=== PATIENT | female | born 1980 | race Caucasian/White ===

== ENCOUNTER 2016-08-27 05:03 | Emergency (ER) | payer OTHER ==
[2016-08-27 05:20] VITALS: BP 118/71; PULSE 83; RESP 16; TEMP 98; O2SAT 99
--- NOTE | 2016-08-27 05:29 | ED PDOC ---
HPI: Allergic Reaction Time Seen by Provider: 08/27/16 05:11 Chief Complaint (Nursing): Allergic Reaction Chief Complaint (Provider): Facial Rash History Per: Patient History/Exam Limitations: no limitations Current Symptoms Are (Timing): Still Present Associated Symptoms: Skin Rash Additional Complaint(s): Rosa Chang, a 36 year old female, presents to the ED for a facial rash. The patient states that on Saturday she got botox and started to use a new facial spray. She states that she developed an itchy facial rash and feels as though it 's spreading and so she decided to come into the ED for evaluation. Denies fever , shortness of breath and vomiting. Past Medical History Reviewed: Historical Data, Nursing Documentation, Vital Signs Vital Signs: Last Vital Signs Temp 98 F 08/27/16 05:16 Pulse 83 08/27/16 05:16 Resp 16 08/27/16 05:16 BP 118/71 08/27/16 05:16 Pulse Ox 99 08/27/16 05:16 - Medical History PMH: Hyperthyroidism - Family History Family History: States: Unknown Family Hx - Social History Current smoker - smoking cessation education provided: No Alcohol: < 2 Drinks/Day Drugs: Denies - Allergies Allergies/Adverse Reactions: Allergies Allergy/AdvReac Type Severity Reaction Status Date / Time poison aida extract Allergy RASH Verified 08/27/16 05:16 Review of Systems Constitutional: Negative for: Fever Respiratory: Negative for: Shortness of Breath Gastrointestinal: Negative for: Vomiting Skin: Positive for: Rash (Urticarial rash to the face) Physical Exam - Reviewed Nursing Documentation Reviewed: Yes Vital Signs Reviewed: Yes - Physical Exam Appears: Positive for: Non-toxic (No facial or lip swelling.), No Acute Distress Skin: Positive for: Warm, Dry, Rash (Urticarial rash to the face.) ENT: Positive for: Normal ENT Inspection Cardiovascular/Chest: Positive for: Regular Rate, Rhythm, Chest Non Tender. Negative for: Tachycardia Respiratory: Positive for: Normal Breath Sounds. Negative for: Wheezing, Respiratory Distress - ECG O2 Sat by Pulse Oximetry: 99 (RA) Pulse Ox Interpretation: Normal - Progress ED Course And Treament: 0511 Initial Plan: 36 year old female presenting with an urticaria rash to the face Initial Plan: * Benadryl 25mg PO Scribe Attestation Documented by Mary Ellen Blevins acting as a scribe for Lise Dawkins MD. Provider Attestation All medical record entries made by the Scribe were at my direction and personally dictated by me. I have reviewed the chart and agree that the record accurately reflects my personal performance of the history, physical exam, medical decision making, and the department course for this patient. I have also personally directed, reviewed, and agree with the discharge instructions and disposition. Disposition - Clinical Impression Clinical Impression: Allergic reaction - Patient ED Disposition Is Patient to be Admitted: No Counseled Patient/Family Regarding: Studies Performed, Diagnosis, Need For Followup - Disposition Disposition: Routine/Home Disposition Time: 06:40 Condition: IMPROVED Additional Instructions: follow up with your primary doctor in 1-2 day take benadryl as needed every 6 hours return to the ED with any worsening or concerning symptoms. Instructions: Urticaria (ED), Allergies (ED)
== END 2016-08-27 06:50 | disposition home or self-care (01) ==
LOC: H.ER 05:03
DX: T78.40XA Allergy, unspecified, initial encounter (principal); E05.90 Thyrotoxicosis, unspecified without thyrotoxic crisis or storm